=== PATIENT | female | born 1970 | race American Indian/Alaskan Native ===

== ENCOUNTER 2016-11-05 00:11 | Emergency (ER) | payer OTHER ==
[2016-11-05 00:12] VITALS: BMI 57.0
--- NOTE | 2016-11-05 01:54 | C.PDOC ---
History Of Present Illness 46 year old female with a history of hypothyroidism and diabetes presents to the ED with complaints of intermittent pain to left lateral neck and shoulder for a week and a half. Time Seen by Provider: 11/05/16 00:49 Chief Complaint (Nursing): Chest Pain History Per: Patient History/Exam Limitations: no limitations Onset/Duration Of Symptoms: Days (10 days ), Intermittent Episodes Current Symptoms Are (Timing): Still Present Quality: "Pain" Past Medical History Reviewed: Historical Data, Nursing Documentation, Vital Signs Vital Signs: Last Vital Signs Temp 97.7 F 11/05/16 00:28 Pulse 72 11/05/16 00:28 Resp 14 11/05/16 00:28 BP 127/78 11/05/16 00:28 Pulse Ox 100 11/05/16 00:28 - Medical History PMH: Asthma, Diabetes (Type II), Hypothyroidism Surgical History: Cholecystectomy Denies: Pacemaker - [facility] Procedures CLOSURE SKIN & SUBCUTANEOUS NEC (02/17/12) ESOPHAGOGASTRODUODENOSCOPY [EGD] W/CLOSED BIOPSY (12/28/12) PERCUTAN NEEDLE BIOPSY OF BREAST (05/22/13) PERCUTAN NEEDLE BX OF THYROID GLAND (02/27/12) Family History: States: Unknown Family Hx - Social History Hx Tobacco Use: No Hx Alcohol Use: No Hx Substance Use: No - Immunization History Hx Tetanus Toxoid Vaccination: No Hx Influenza Vaccination: No Hx Pneumococcal Vaccination: No Review Of Systems Musculoskeletal: Positive for: Neck Pain (left lateral ), Shoulder Pain (left ) Physical Exam - Physical Exam Appears: Non-toxic, No Acute Distress, Other (Patient is morbidly obese ) Skin: Warm, Dry Head: Atraumatic, Normacephalic Eye(s): bilateral: Normal Inspection, PERRL, EOMI Oral Mucosa: Moist Neck: Normal ROM, Supple Chest: Symmetrical, No Deformity Cardiovascular: Rhythm Regular, No Murmur Respiratory: Normal Breath Sounds, No Rales, No Rhonchi, No Wheezing Gastrointestinal/Abdominal: Soft, No Tenderness, No Distention, No Guarding, No Rebound ED Course And Treatment ECG: Interpreted By Me, Viewed By Me ECG Rhythm: Sinus Rhythm Rate From EC O2 Sat by Pulse Oximetry: 100 (RA) Progress Note: EKG was ordered. Disposition - Disposition - PA / CATH LAB TECH / Resident Statement /DO has reviewed & agrees with the documentation as recorded. - Scribe Statement The provider has reviewed the documentation as recorded by the Scribe Marian Granados All medical record entries made by the Aidanibviral were at my direction and personally dictated by me. I have reviewed the chart and agree that the record accurately reflects my personal performance of the history, physical exam, medical decision making, and the department course for this patient. I have also personally directed, reviewed, and agree with the discharge instructions and disposition.
--- NOTE | 2016-11-05 01:58 | C.PDOC ---
History Of Present Illness 46 year old female with a history of hypothyroidism and diabetes presents to the ED with complaints of intermittent pain to left lateral neck and shoulder that radiates to middle three fingers with occasional tingling in fingers for last 10 days. no hx neck problems, no trauma or injury. Patient denies chest pain, sob, weakness, numbness, fever, nausea, or vomiting. Time Seen by Provider: 11/05/16 00:49 Chief Complaint (Nursing): Chest Pain History Per: Patient History/Exam Limitations: no limitations Onset/Duration Of Symptoms: Days (10 days), Intermittent Episodes Current Symptoms Are (Timing): Still Present Quality Of Discomfort: "Pain" Previous Symptoms: None Associated Symptoms: None Exacerbating Factor(s): Nothing Recent travel outside of the [place]: No Past Medical History Reviewed: Historical Data, Nursing Documentation, Vital Signs Vital Signs: Last Vital Signs Temp 98.4 F 11/05/16 02:20 Pulse 78 11/05/16 02:20 Resp 18 11/05/16 02:20 BP 123/75 11/05/16 02:20 Pulse Ox 100 11/05/16 21:24 - Medical History PMH: Asthma, Diabetes (Type II), Hypothyroidism Surgical History: Cholecystectomy Denies: Pacemaker - [facility] Procedures CLOSURE SKIN & SUBCUTANEOUS NEC (02/17/12) ESOPHAGOGASTRODUODENOSCOPY [EGD] W/CLOSED BIOPSY (12/28/12) PERCUTAN NEEDLE BIOPSY OF BREAST (05/22/13) PERCUTAN NEEDLE BX OF THYROID GLAND (02/27/12) Family History: States: Unknown Family Hx - Social History Hx Tobacco Use: No Hx Alcohol Use: No Hx Substance Use: No - Immunization History Hx Tetanus Toxoid Vaccination: No Hx Influenza Vaccination: No Hx Pneumococcal Vaccination: No Review Of Systems Constitutional: Negative for: Fever, Chills Cardiovascular: Negative for: Chest Pain, Palpitations Respiratory: Negative for: Cough, Shortness of Breath Gastrointestinal: Negative for: Nausea, Vomiting Musculoskeletal: Positive for: Neck Pain (left lateral ), Shoulder Pain (left shoulder ) Neurological: Positive for: Other (tingling in fingers sometimes). Negative for : Weakness, Numbness Physical Exam - Physical Exam Appears: Non-toxic, No Acute Distress, Other (morbidly obese) Skin: Warm, Dry Head: Atraumatic, Normacephalic Eye(s): bilateral: Normal Inspection, PERRL, EOMI Oral Mucosa: Moist Neck: Normal ROM, No Midline Cervical Tenderness, Paracervical Tenderness (mild left ), Supple Chest: Symmetrical, No Deformity, No Tenderness Cardiovascular: Rhythm Regular, No Murmur Respiratory: Normal Breath Sounds, No Rales, No Rhonchi, No Wheezing Back: No Vertebral Tenderness, No Paraspinal Tenderness, Other (Left trapezius tenderness ) Extremity: Normal ROM, No Tenderness, Capillary Refill (less than 2 sec) Pulses: Left Radial: Normal, Right Radial: Normal Neurological/Psych: Oriented x3, Normal Speech, Normal Cognition, Normal Cranial Nerves, Normal Motor, Normal Sensation ED Course And Treatment ECG: Interpreted By Me, Viewed By Me ECG Rhythm: Sinus Rhythm Rate From EC O2 Sat by Pulse Oximetry: 100 (RA) Progress Note: EKG was ordered. Medical Decision Making Medical Decision Making: pt with intermittent left shoulder neck pain that radiates to fingers with occasional tingling to 2,3, and 4th finger x 10 days. denies cp and sob, normal ekg. will d/c with muscle relaxant and f/u in med clinic Disposition Counseled Patient/Family Regarding: Diagnosis, Need For Followup, Rx Given - Disposition Referrals: [facility] [Outside] Disposition: HOME/ ROUTINE Disposition Time: 02:13 Condition: STABLE Additional Instructions: Take Tylenol or Motrin for pain in shoulder/neck area. Muscle relaxant makes you drowsy- may take up to 3 times a day but no driving or operating machinery when taking. Follow up in Medical clinic in the next few days. Return to ER for any worsening symptoms. Prescriptions: Cyclobenzaprine [Cyclobenzaprine HCl] 10 mg PO Q8 #9 tab Instructions: Cervical Radiculopathy (ED) Forms: [facility] (Kinyarwanda), General Discharge Instructions - Clinical Impression Clinical Impression: Cervical radiculopathy - PA / DIRECTOR OF RECREATION THERAPY / Resident Statement MD/DO has reviewed & agrees with the documentation as recorded. - Scribe Statement The provider has reviewed the documentation as recorded by the Scribe Marian Granados All medical record entries made by the Scribe were at my direction and personally dictated by me. I have reviewed the chart and agree that the record accurately reflects my personal performance of the history, physical exam, medical decision making, and the department course for this patient. I have also personally directed, reviewed, and agree with the discharge instructions and disposition.
[2016-11-05 02:55] VITALS: BP 123/75; PULSE 78; RESP 18; TEMP 98.4
[2016-11-05 03:09] VITALS: O2SAT 100
--- NOTE | 2016-11-07 18:22 | CARD ---
APPROVED REPORT EKG Measurement Heart [id number] <Conclusion> Normal sinus rhythm Normal ECG
== END 2016-11-05 02:25 | disposition home or self-care (01) ==
LOC: C.ER 00:11
DX: M54.12 Radiculopathy, cervical region (principal); E11.9 Type 2 diabetes mellitus without complications

== ENCOUNTER 2017-04-06 18:28 | Emergency (ER) | payer OTHER ==
[2017-04-06 18:36] VITALS: BMI 61.5
[2017-04-06] MEDS ORDERED: Naproxen 550 mg Tab PO STA (19:24)
[2017-04-06] MEDS ORDERED: Naproxen 550 mg Tab PO ONE (19:33)
--- NOTE | 2017-04-06 19:56 | C.PDOC ---
History Of Present Illness 46 year old female presents to the ED for evaluation of a painful lump to her left breast which she noted 2 weeks ago. Patient states the pain is worse with movement. She denies fever, chills, and shortness of breath. Time Seen by Provider: 04/06/17 19:06 Chief Complaint (Nursing): Chest Pain History Per: Patient History/Exam Limitations: no limitations Onset/Duration Of Symptoms: Other (2 weeks ) Current Symptoms Are (Timing): Still Present Exacerbating Factors: Movement Additional History Per: Patient Past Medical History Reviewed: Historical Data, Nursing Documentation, Vital Signs Vital Signs: Last Vital Signs Temp 98.8 F 04/06/17 20:09 Pulse 85 04/06/17 20:09 Resp 16 04/06/17 20:09 BP 124/77 04/06/17 20:09 Pulse Ox 99 04/06/17 20:32 - Medical History PMH: Asthma, Diabetes (Type II), Hypothyroidism Denies: Depression Surgical History: Cholecystectomy Denies: Pacemaker - [facility] Procedures CLOSURE SKIN & SUBCUTANEOUS NEC (02/17/12) ESOPHAGOGASTRODUODENOSCOPY [EGD] W/CLOSED BIOPSY (12/28/12) PERCUTAN NEEDLE BIOPSY OF BREAST (05/22/13) PERCUTAN NEEDLE BX OF THYROID GLAND (02/27/12) Family History: States: Unknown Family Hx - Social History Hx Tobacco Use: No Hx Alcohol Use: No Hx Substance Use: No - Immunization History Hx Tetanus Toxoid Vaccination: No Hx Influenza Vaccination: No Hx Pneumococcal Vaccination: No Review Of Systems Constitutional: Negative for: Fever, Chills Respiratory: Negative for: Shortness of Breath Skin: Positive for: Other (painful lump to left breast ) Physical Exam - Physical Exam Appears: Non-toxic, No Acute Distress, Other (comfortable ) Skin: Normal Color, Warm, Dry Head: Atraumatic, Normacephalic Eye(s): bilateral: Normal Inspection Oral Mucosa: Moist Neck: Supple Chest: Symmetrical, No Deformity, No Tenderness, Other (2-3cm, palpable lump to 6 o'clock position on inferior aspect of left breast. no erythema, no skin changes, no fluctuance, no induration ) Cardiovascular: Rhythm Regular, No Murmur Respiratory: Normal Breath Sounds, No Rales, No Rhonchi, No Wheezing, Other ( speaking in full sentences ) Extremity: Normal ROM, Capillary Refill (less than 2 seconds) Neurological/Psych: Oriented x3, Normal Speech, Normal Cognition ED Course And Treatment ECG: Interpreted By Me, Viewed By Me ECG Rhythm: Sinus Rhythm Interpretation Of ECG: Normal Sinus Rhythm at 94bpm. No acute ST/T wave changes. Normal axis. Rate From EC O2 Sat by Pulse Oximetry: 99 (on RA) Pulse Ox Interpretation: Normal - Radiology CXR: Interpreted by Me, Viewed By Me CXR Interpretation: Yes: Other (no evidence of infiltrates or masses) Progress Note: CXR and EKG ordered and reviewed. Naproxen PO administered. On reassessment, patient is resting comfortably, showing no signs of distress and is stable for discharge. Patient states she is scheduled for an upcoming clinic appointment. Patient is advised to keep her appoinment for follow-up and return to the ED if symptoms persist or worsen. Disposition Counseled Patient/Family Regarding: Diagnosis, Need For Followup, Rx Given - Disposition Referrals: [facility] [Outside] Disposition: HOME/ ROUTINE Disposition Time: 20:00 Condition: STABLE Additional Instructions: FOLLOW UP IN MEDICAL CLINIC SCHEDULED YOU NEED OUTPATIENT MAMMOGRAM USE MEDICATION NEEDED FOR PAIN RETURN TO ER IF SYMPTOMS WORSEN Prescriptions: Naproxen 375 mg PO BID PRN #20 tablet PRN Reason: pain Instructions: Mastalgia Forms: [facility] (Estonian) Print Language: TAMAZIGHT - Clinical Impression Clinical Impression: Breast lump on left side at 6 o'clock position - Scribe Statement The provider has reviewed the documentation as recorded by the Scribe (Barb Newton) Provider Attestation: All medical record entries made by the Scribe were at my direction and personally dictated by me. I have reviewed the chart and agree that the record accurately reflects my personal performance of the history, physical exam, medical decision making, and the department course for this patient. I have also personally directed, reviewed, and agree with the discharge instructions and disposition.
[2017-04-06 20:10] VITALS: BP 124/77; PULSE 85; RESP 16; TEMP 98.8
[2017-04-06 20:16] VITALS: O2SAT 99
--- NOTE | 2017-04-07 08:07 | RAD ---
HISTORY: LEFT SIDED PAIN COMPARISON: No prior. TECHNIQUE: Chest PA and lateral FINDINGS: LUNGS: No active pulmonary disease. PLEURA: No significant pleural effusion identified. No pneumothorax apparent. CARDIOVASCULAR: Normal. OSSEOUS STRUCTURES: No significant abnormalities. VISUALIZED UPPER ABDOMEN: Normal. OTHER FINDINGS: None. IMPRESSION: No active disease.
--- NOTE | 2017-04-09 08:38 | CARD ---
APPROVED REPORT EKG Measurement Heart [id number] <Conclusion> Normal sinus rhythm Nonspecific T wave abnormality Abnormal ECG
== END 2017-04-06 20:10 | disposition home or self-care (01) ==
LOC: C.ER 18:28
DX: N63.20 Unspecified lump in the left breast, unspecified quadrant (principal)